=== PATIENT | female | born 1970 ===

== ENCOUNTER 2017-04-02 08:43 | Emergency (ER) | payer OTHER ==
[2017-04-02] MEDS ORDERED: Acetaminophen 650mg/20.3ml solution UD PO STA (09:27)
[2017-04-02] MEDS ORDERED: Sodium Chloride 0.9% 1,000 ML IV ONE (09:27)
--- NOTE | 2017-04-02 09:30 | C.PDOC ---
History Of Present Illness 47 y/o female, with no PMHx, c/o lower abdominal pain and rectal pain for 1 week. Denies fevers, nausea, vomiting, or diarrhea. No other complaints. Time Seen by Provider: 04/02/17 09:22 Chief Complaint (Nursing): Abdominal Pain History Per: Patient History/Exam Limitations: no limitations Onset/Duration Of Symptoms: Days Current Symptoms Are (Timing): Still Present Location Of Pain/Discomfort: RLQ, LLQ Radiation Of Pain To:: None Quality Of Discomfort: "Pain" Associated Symptoms: denies: Fever, Vomiting, Diarrhea Recent travel outside of the [place]: No Abnormal Vaginal Bleeding: No Past Medical History Reviewed: Historical Data, Nursing Documentation, Vital Signs Vital Signs: Last Vital Signs Temp 97.9 F 04/02/17 13:08 Pulse 74 04/02/17 13:08 Resp 16 04/02/17 13:08 BP 97/70 L 04/02/17 13:08 Pulse Ox 100 04/02/17 14:23 - Medical History PMH: No Chronic Diseases Family History: States: Unknown Family Hx - Social History Hx Alcohol Use: No Hx Substance Use: No - Immunization History Hx Tetanus Toxoid Vaccination: Yes Hx Influenza Vaccination: No Hx Pneumococcal Vaccination: No Review Of Systems Except As Marked, All Systems Reviewed And Found Negative. Constitutional: Negative for: Fever, Chills Cardiovascular: Negative for: Chest Pain Respiratory: Negative for: Cough, Wheezing Gastrointestinal: Positive for: Abdominal Pain, Rectal Pain. Negative for: Nausea, Vomiting, Diarrhea Genitourinary: Negative for: Dysuria, Hematuria Skin: Negative for: Rash Neurological: Negative for: Headache Physical Exam - Physical Exam Appears: Non-toxic, No Acute Distress Skin: Normal Color, Warm, Dry Head: Atraumatic, Normacephalic Oral Mucosa: Moist Chest: Symmetrical Cardiovascular: Rhythm Regular Respiratory: Normal Breath Sounds, No Rales, No Rhonchi, No Wheezing Gastrointestinal/Abdominal: Soft, Tenderness (mild, lower abdomen), No Guarding , No Rebound Back: Normal Inspection Extremity: Normal ROM, Capillary Refill (< 2 sec.) Neurological/Psych: Oriented x3, Normal Speech, Normal Cognition ED Course And Treatment - Laboratory Results Result Diagrams: 04/02/17 09:50 04/02/17 09:50 O2 Sat by Pulse Oximetry: 100 (RA) Pulse Ox Interpretation: Normal - CT Scan/US CT Abdomen/Pelvis Other Rad Studies (CT/US): Read By Radiologist, Radiology Report Reviewed CT/US Interpretation: FINDINGS: LOWER THORAX: No visible consolidation, pleural effusion, or pneumothorax. LIVER: Unremarkable. GALLBLADDER AND BILE DUCTS: Unremarkable. PANCREAS: Unremarkable. SPLEEN: Unremarkable. ADRENALS: Unremarkable. KIDNEYS AND URETERS: The kidneys enhance symmetrically. No hydronephrosis or obstructing calculus identified. VASCULATURE: No aortic aneurysm. BOWEL: Stomach is nondistended. Lack of oral contrast limits evaluation for bowel pathology. Bowel loops appear within normal limits of caliber without evidence of obstruction. APPENDIX: The appendix appears within normal limits of caliber. No secondary signs of acute appendicitis. PERITONEUM: Small pelvic free fluid. No definite free air. LYMPH NODES: No bulky adenopathy identified. BLADDER: Unremarkable. REPRODUCTIVE: The uterus is present. 18 mm probable left ovarian cyst, recommend pelvic ultrasound for further evaluation if indicated. BONES: No acute osseous abnormality is detected. OTHER FINDINGS: 4 mm fat containing umbilical hernia. IMPRESSION: 18 mm probable left ovarian cyst, recommend pelvic ultrasound for further evaluation if indicated. Small pelvic free fluid. Medical Decision Making Medical Decision Making: rectal/lower abd pain - r/o rectal abscess- labs imaging penidng Plan: Tylenol, IVFs. Labs ordered. CT abdomen/pelvis Progress:pain improved on reassessment, no llq ttp. no clincal concern for torsion as pain resolved, cyst <4cm. Disposition - Disposition Referrals: [facility] [Outside] [facility] [Outside] [facility] [Outside] [facility] [Outside] Meche Valencia [Staff Provider] - Rachelle Coronel MD [Staff Provider] - Disposition: HOME/ ROUTINE Disposition Time: 02:00 Condition: GOOD Additional Instructions: please see specialists. return to er with worsening symptoms or concerns. Prescriptions: Naproxen [Naprosyn] 500 mg PO BID PRN #14 tablet PRN Reason: Pain, Mild (1-3) Instructions: Ovarian Cyst (ED), Acute Abdominal Pain (ED), Rectal Pain (ED) Forms: [employer] (Yoruba) - Clinical Impression Clinical Impression: Rectal pain - Scribe Statement The provider has reviewed the documentation as recorded by the Scribe SM All medical record entries made by the Scribe were at my direction and personally dictated by me. I have reviewed the chart and agree that the record accurately reflects my personal performance of the history, physical exam, medical decision making, and the department course for this patient. I have also personally directed, reviewed, and agree with the discharge instructions and disposition.
[2017-04-02 09:53] LABS: BASO % 0.5 % (0.0-2.0); EOS % 0.2 % (0.0-4.0); HEMATOCRIT 40.3 % (34.0-47.0); LYMPH # 2.1 K/uL (1.0-4.3); LYMPH % 26.6 % (20.0-40.0); MEAN CELL VOLUME 91.3 fL (81.0-99.0); MEAN CORPUSCULAR HEMOGLOBIN 31.7 pg (27.0-31.0); MEAN CORPUSCULAR HGB CONC 34.7 g/dL (33.0-37.0); MEAN PLATELET VOLUME 6.9 fL (7.2-11.7); MONO # 0.6 K/uL (0.0-0.8); RED CELL DISTRIBUTION WIDTH 13.3 % (11.5-14.5); WHITE BLOOD COUNT 7.9 K/uL (4.8-10.8)
[2017-04-02] MEDS ORDERED: Sodium Chloride 0.9% 1,000 ML ONE (09:53)
[2017-04-02] MEDS ORDERED: Acetaminophen 650mg/20.3ml solution UD ONE (09:53)
[2017-04-02 10:00] LABS: RBC URINE < 1 /hpf (0-3); URINE BILIRUBIN NEGATIVE (NEGATIVE); URINE BLOOD NEGATIVE (NEGATIVE); URINE COLOR Straw (YELLOW); URINE GLUCOSE (UA) NORMAL (Normal); URINE KETONE NEGATIVE (NEGATIVE); URINE LEUKOCYTE ESTERASE NEG Leu/uL (Negative); URINE PROTEIN NEGATIVE (NEGATIVE); URINE UROBILINOGEN NORMAL mg/dL (0.2-1.0); WBC URINE < 1 /hpf (0-5)
[2017-04-02 10:22] LABS: CHLORIDE 103 mmol/L (98-107); POTASSIUM 3.9 mmol/L (3.6-5.2); SODIUM 138 mmol/L (132-148)
[2017-04-02 10:24] LABS: BILIRUBIN,TOTAL 0.7 mg/dL (0.2-1.3); CARBON DIOXIDE 25 mmol/L (22-30); GFR AFRICAN-AMERICAN > 60
[2017-04-02 10:25] LABS: ALB/GLOB RATIO 1.1 (1.0-2.1); ALKALINE PHOSPHATASE 65 U/L (38-126); ALT/SGPT 34 U/L (9-52); AST/SGOT 22 U/L (14-36); BLOOD UREA NITROGEN 10 mg/dL (7-17); CALCIUM 9.5 mg/dl (8.6-10.4); GLUCOSE,RANDOM 87 mg/dL (65-105); TOTAL PROTEIN 8.5 g/dL (6.3-8.3)
[2017-04-02 11:04] VITALS: RESP 16
[2017-04-02] MEDS ORDERED: Iodixanol 320 MG/ML 100 ML BOTTLE IV ONE (11:34)
--- NOTE | 2017-04-02 12:27 | CT ---
PROCEDURE: CT Abdomen and Pelvis with contrast HISTORY: lower abd/rectal pain COMPARISON: None available. TECHNIQUE: Contrast dose: 100 mL Visipaque Radiation dose: Total exam DLP = 371.52 MGy-cm. This CT exam was performed using one or more of the following dose reduction techniques: Automated exposure control, adjustment of the mA and/or kV according to patient size, and/or use of iterative reconstruction technique. FINDINGS: LOWER THORAX: No visible consolidation, pleural effusion, or pneumothorax. LIVER: Unremarkable. GALLBLADDER AND BILE DUCTS: Unremarkable. PANCREAS: Unremarkable. SPLEEN: Unremarkable. ADRENALS: Unremarkable. KIDNEYS AND URETERS: The kidneys enhance symmetrically. No hydronephrosis or obstructing calculus identified. VASCULATURE: No aortic aneurysm. BOWEL: Stomach is nondistended. Lack of oral contrast limits evaluation for bowel pathology. Bowel loops appear within normal limits of caliber without evidence of obstruction. APPENDIX: The appendix appears within normal limits of caliber. No secondary signs of acute appendicitis. PERITONEUM: Small pelvic free fluid. No definite free air. LYMPH NODES: No bulky adenopathy identified. BLADDER: Unremarkable. REPRODUCTIVE: The uterus is present. 18 mm probable left ovarian cyst, recommend pelvic ultrasound for further evaluation if indicated. BONES: No acute osseous abnormality is detected. OTHER FINDINGS: 4 mm fat containing umbilical hernia. IMPRESSION: 18 mm probable left ovarian cyst, recommend pelvic ultrasound for further evaluation if indicated. Small pelvic free fluid.
[2017-04-02 12:34] VITALS: O2SAT 100
[2017-04-02 13:09] VITALS: BP 97/70; PULSE 74; TEMP 97.9
== END 2017-04-02 13:21 | disposition home or self-care (01) ==
LOC: C.ER 08:43
DX: K62.89 Other specified diseases of anus and rectum (principal)
CPT/HCPCS: 74177; 80053; 81001; 83690; 84703; 85025; 96360; 99284; J7040; Q9967

== ENCOUNTER 2018-09-03 09:18 | Emergency (ER) | payer OTHER ==
[2018-09-03 09:18] VITALS: BMI 27.9
[2018-09-03 09:22] VITALS: TEMP 98.4; O2SAT 100
--- NOTE | 2018-09-03 10:35 | C.PDOC ---
History Of Present Illness 48 year old female presents to ED with complaint of right ear pain for 1 week. Patient denies fever, chills, diaphoresis, runny nose, nasal congestion, and throat pain. Time Seen by Provider: 09/03/18 09:24 Chief Complaint (Nursing): ENT Problem History Per: Patient Onset/Duration Of Symptoms: Days (7) Current Symptoms Are (Timing): Still Present Past Medical History Reviewed: Historical Data, Nursing Documentation, Vital Signs Vital Signs: Last Vital Signs Temp 98.4 F 09/03/18 09:19 Pulse 56 L 09/03/18 09:19 Resp 18 09/03/18 09:19 BP 116/70 09/03/18 09:19 Pulse Ox 100 09/03/18 09:19 - Medical History PMH: No Chronic Diseases Surgical History: No Surg Hx Family History: States: Unknown Family Hx - Social History Hx Alcohol Use: No Hx Substance Use: No - Immunization History Hx Tetanus Toxoid Vaccination: Yes Hx Influenza Vaccination: No Hx Pneumococcal Vaccination: No Review Of Systems Except As Marked, All Systems Reviewed And Found Negative. Constitutional: Negative for: Fever, Chills, Weakness ENT: Positive for: Ear Pain. Negative for: Nose Discharge, Nose Congestion, Throat Pain Neurological: Negative for: Weakness, Numbness, Dizziness Physical Exam - Physical Exam Appears: Well, Non-toxic, No Acute Distress Skin: Normal Color, Warm, Dry Head: Atraumatic, Normacephalic Ear(s): Right: TM Erythema (swelling ) Nose: Normal Oral Mucosa: Moist Throat: Normal, No Erythema, No Exudate Neck: Normal ROM, No Supple Chest: Symmetrical, No Deformity Cardiovascular: Rhythm Regular, No Murmur Respiratory: No Accessory Muscle Use Gastrointestinal/Abdominal: Soft, No Tenderness Extremity: Capillary Refill (<2 seconds) Neurological/Psych: Oriented x3, Normal Speech, Normal Cognition ED Course And Treatment O2 Sat by Pulse Oximetry: 100 (in RA) Progress Note: Patient given Amoxicillin PO and Ibuprofen PO. Upon re-eval, patient is resting comfortably, in no acute distress, and stable for discharge. Patient is advised to follow up with PMD and ENT within 1-2 days. Patient advised to return to ED if symptoms persist or worsen. Disposition - Disposition Referrals: Leobardo Phipps MD [Staff Provider] - Disposition: HOME/ ROUTINE Disposition Time: 10:32 Condition: STABLE Additional Instructions: Follow up with PMD and ENT specialist within 1-2 days. Return to ED if feel worse. 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 (Ramona Schafer) - Scribe Statement The provider has reviewed the documentation as recorded by the Scribe (Ramona Schafer) All medical record entries made by the Scribe were at my direction and personally dictated by me. I have reviewed the chart and agree that the record accurately reflects my personal performance of the history, physical exam, medical decision making, and the department course for this patient. I have also personally directed, reviewed, and agree with the discharge instructions and disposition.
[2018-09-03 10:45] VITALS: BP 102/66; PULSE 61; RESP 20
== END 2018-09-03 10:45 | disposition home or self-care (01) ==
LOC: C.ER 09:18
DX: H66.90 Otitis media, unspecified, unspecified ear (principal)

== ENCOUNTER 2018-10-02 16:59 | Emergency (ER) | payer OTHER ==
[2018-10-02 17:00] VITALS: BMI 27.9
[2018-10-02 17:05] VITALS: O2SAT 100
[2018-10-02] MEDS ORDERED: Naproxen 550 mg Tab PO STA (18:00)
[2018-10-02] MEDS ORDERED: Naproxen 550 mg Tab PO ONE (18:13)
[2018-10-02 18:50] VITALS: BP 118/72; PULSE 86; RESP 18; TEMP 98.9
--- NOTE | 2018-10-02 18:50 | C.PDOC ---
History Of Present Illness 48 year old female presents to ED with complaint of headache that radiates from the back of her head and moves to the front of her head for the past 3 days. Patient states that she took Advil 2 days ago with no improvement. Patient also complains of dizziness. Patient denies photophobia,nausea, vomiting, fever, back pain, neck pain , and abdominal pain. Time Seen by Provider: 10/02/18 17:13 Chief Complaint (Nursing): Flu-like Symptoms History Per: Patient History/Exam Limitations: no limitations Onset/Duration Of Symptoms: Days (3) Current Symptoms Are (Timing): Still Present Location Of Pain: Headache Associated Symptoms: denies: Fever, Chills, Neck Pain, Nausea, Vomiting Past Medical History Reviewed: Historical Data, Nursing Documentation, Vital Signs Vital Signs: Last Vital Signs Temp 99.4 F 10/02/18 17:03 Pulse 84 10/02/18 17:03 Resp 16 10/02/18 17:03 BP 108/74 10/02/18 17:03 Pulse Ox 100 10/02/18 17:03 Primary Care Provider: David Li Surg - Medical History PMH: No Chronic Diseases Surgical History: No Surg Hx Family History: States: Unknown Family Hx - Social History Hx Alcohol Use: No Hx Substance Use: No - Immunization History Hx Tetanus Toxoid Vaccination: Yes Hx Influenza Vaccination: No Hx Pneumococcal Vaccination: No Review Of Systems Constitutional: Negative for: Fever, Chills, Weakness Eyes: Negative for: Vision Change, Other (photophobia) Gastrointestinal: Negative for: Nausea, Vomiting, Abdominal Pain Musculoskeletal: Negative for: Neck Pain, Back Pain Neurological: Positive for: Headache, Dizziness. Negative for: Weakness, Numbness Physical Exam - Physical Exam Appears: Well, Non-toxic, No Acute Distress Skin: Normal Color, Warm, Dry Head: Atraumatic, Normacephalic Eye(s): bilateral: Normal Inspection, PERRL, EOMI Ear(s): Bilateral: Normal Throat: Normal, No Erythema, No Exudate Neck: Normal ROM, No Midline Cervical Tenderness, No Paracervical Tenderness, Supple Chest: Symmetrical, No Deformity Cardiovascular: Rhythm Regular, No Murmur Respiratory: No Accessory Muscle Use Extremity: Capillary Refill (< 2 seconds) Extremity: Bilateral: Atraumatic, Normal Color And Temperature, Normal ROM Neurological/Psych: Oriented x3, Normal Speech, Normal Cognition ED Course And Treatment O2 Sat by Pulse Oximetry: 100 (in RA) Pulse Ox Interpretation: Normal Medical Decision Making Medical Decision Making: Initial Plan: Naproxen PO Zofran PO prednisone PO On re-exam, the patient reports improvement of symptoms. Lungs are CTA, heart is RRR, abdomen is soft, non-tender and the patient is tolerating PO well. Pt is ambulatory in the ED with steady gait. Follow up with the medical doctor within 1-2 days. Return if worsened. Disposition - Disposition Referrals: [facility] [Outside] Disposition: HOME/ ROUTINE Disposition Time: 18:46 Condition: GOOD Additional Instructions: Follow up with the medical doctor within 1-2 days. Return if worsened. Prescriptions: Ibuprofen [Motrin] 600 mg PO TID #21 tab predniSONE [Prednisone] 20 mg PO BID #10 tab Instructions: Viral Syndrome (DC) Forms: [employer] (Sinhala) Print Language: OCCITAN - Clinical Impression Clinical Impression: Viral syndrome, Headache - PA / NETWORK ENGINEER ADMINISTRATOR / Resident Statement MD/DO has reviewed & agrees with the documentation as recorded. (Ramona Schafer) - Scribe Statement The provider has reviewed the documentation as recorded by the Scribe (Ramona Schafer) All medical record entries made by the Scribe were at my direction and personally dictated by me. I have reviewed the chart and agree that the record accurately reflects my personal performance of the history, physical exam, medical decision making, and the department course for this patient. I have also personally directed, reviewed, and agree with the discharge instructions and disposition.
== END 2018-10-02 18:53 | disposition home or self-care (01) ==
LOC: C.ER 16:59
DX: B34.9 Viral infection, unspecified (principal); R51 Headache